=== PATIENT | female | born 2000 | race Asian ===

== ENCOUNTER 2019-04-28 17:55 | Emergency (ER) | payer OTHER ==
[2019-04-28 19:06] LABS: Influenza B Molecular POSITIVE (Negative)
--- NOTE | 2019-04-28 19:11 | ED ---
Influenza-Like Illness - HPI Summary HPI Summary: Patient complains of fever 3 days, and neck aches, chills, dry cough starting yesterday. Denies sore throat, THORPE, neck stiffness, CP, SOB, N/V/V abdominal pain, change in urine, change in BM. Medical history is none. Denies recent travel to [place] or known exposure to coronavirus. - History of Current Complaint Chief Complaint: EDFluSymptoms Time Seen by Provider: 04/28/19 19:10 Hx Obtained From: Patient Onset/Duration: Gradual Onset, Lasting Days Severity: Moderate Associated Signs & Symptoms: Fever, Myalgia, Cough - Allergy/Home Medications Allergies/Adverse Reactions: Allergies Allergy/AdvReac Type Severity Reaction Status Date / Time No Known Allergies Allergy Verified 04/28/19 19:50 PMH/Surg Hx/FS Hx/Imm Hx Endocrine/Hematology History: Denies: Hx Anticoagulant Therapy Cardiovascular History: Denies: Hx Pacemaker/ICD History: Denies: Hx Dialysis Sensory History: Denies: Hx Eye Prosthesis Opthamlomology History: Denies: Hx Legally Blind EENT History: Denies: Hx Deafness Neurological History: Denies: Hx Dementia Infectious Disease History: No Infectious Disease History: Reports: Traveled Outside the in Last 30 Days - Family History Known Family History: Positive: Non-Contributory - Social History Alcohol Use: Occasionally Hx Substance Use: No Hx Tobacco Use: No Review of Systems Positive: Fever Eyes: Negative ENT: Negative Cardiovascular: Negative Positive: Cough Gastrointestinal: Negative Genitourinary: Negative Positive: Myalgia Skin: Negative Neurological: Negative Psychological: Normal All Other Systems Reviewed And Are Negative: Yes Physical Exam Triage Information Reviewed: Yes Vital Signs On Initial Exam: Initial Vitals Temp Pulse Resp BP Pulse Ox 100.5 F 109 15 142/91 95 04/28/19 17:56 04/28/19 17:56 04/28/19 17:56 04/28/19 17:56 04/28/19 17:56 Vital Signs Reviewed: Yes Appearance: Positive: Well-Appearing Skin: Positive: Warm Head/Face: Positive: Normal Head/Face Inspection Eyes: Positive: Normal ENT: Positive: Normal ENT inspection Neck: Positive: Supple Respiratory/Lung Sounds: Positive: Clear to Auscultation Cardiovascular: Positive: Normal Abdomen Description: Positive: Nontender Musculoskeletal: Positive: Normal Neurological: Positive: Normal Psychiatric: Positive: Normal AVPU Assessment: Alert - Michael Coma Scale Best Eye Response: 4 - Spontaneous Best Motor Response: 6 - Obeys Commands Best Verbal Response: 5 - Oriented Coma Scale Total: 15 Procedures - Sedation Patient Received Moderate/Deep Sedation with Procedure: No Diagnostics - Vital Signs Vital Signs Temp Pulse Resp BP Pulse Ox 04/28/19 17:56 100.5 F 109 15 142/91 95 - Laboratory Lab Results: Lab Results 04/28/19 Range/Units 18:04 Influenza A (Rapid) Not Reportable Influenza B (Rapid) Positive A (Negative) Lab Statement: Any lab studies that have been ordered have been reviewed, and results considered in the medical decision making process. Flu Symptom Course/Dx - Course Course Of Treatment: Patient complains of fever 3 days, and neck aches, chills , dry cough starting yesterday. Denies sore throat, THORPE, neck stiffness, CP, SOB , N/V/V abdominal pain, change in urine, change in BM. Medical history is none. Denies recent travel to [place] or known exposure to coronavirus. Vital signs within normal limits. Positive for flu b - Diagnoses Provider Diagnoses: Flu Discharge ED - Sign-Out/Discharge Documenting (check all that apply): Patient Departure - Discharge Plan Condition: Stable Disposition: HOME Prescriptions: Benzonatate CAP* [Tessalon 100 MG CAP*] 200 mg PO TID 6 Days #40 cap Oseltamivir Phosphate [Tamiflu] 75 mg PO BID 5 Days #10 capsule Patient Education Materials: Influenza (ED) Forms: *School Release Referrals: [facility] - Jack ROSENBERG [Primary Care Provider] - Additional Instructions: Alternate Advil 400 mg with Tylenol 650 mg every 3 hours for fever control and body aches. Take Tamiflu as directed. Take Tessalon for cough as directed. Drink plenty of fluids. Rest. Follow-up with primary care. Return to the ED for any new or worsening symptoms. - Billing Disposition and Condition Condition: STABLE Disposition: Home
[2019-04-28] MEDS ORDERED: Oseltamivir CAP* 75 MG CAP PO ONE (19:17)
[2019-04-28] MEDS ORDERED: Benzonatate CAP* 100 MG PO ONE (19:17)
[2019-04-28] MEDS ORDERED: Acetaminophen TAB* 325 MG PO ONE (19:17)
== END 2019-04-28 19:35 | disposition home or self-care (01) ==
LOC: ED 17:55
DX: J11.1 Influenza due to unidentified influenza virus with other respiratory manifestations (principal)
CPT/HCPCS: 99282; A9270-GY